=== PATIENT | female | born 1975 | race Caucasian/White ===

== ENCOUNTER → 2017-12-17 09:32 | Outpatient (CLI) | payer OTHER, SELFPAY ==
--- NOTE | 2017-12-17 | DI.US.S_ITS ---
PROCEDURE: US PELVIC COMPLETE INDICATIONS: Severe dysmenorrhea TECHNIQUE: Real-time scanning was performed of the pelvic organs, with image documentation. Additional endovaginal scanning was necessary due to incomplete visualization of the adnexal and endometrial structures by transabdominal scanning. COMPARISON: None. FINDINGS: Transabdominal scanning: Limited scanning through the kidneys shows no hydronephrosis. The kidneys measure 11.9 cm in length each. No pathologic free abdominal or pelvic fluid. Endovaginal scanning: Uterus: Uterus is normal in size at 5.7 x 6.9 x 7.2 cm. The endometrium measures 11 mm in combined thickness. There is a mid anterior intramural fibroid that measures 2.2 x 2.7 x 3.6 cm. Ovaries: The right ovary is enlarged measuring 42 x 46 x 47 mm secondary to a hemorrhagic cyst that measures 34 x 41 x 42 mm. The left ovary is normal measuring 14 x 17 x 28 mm. IMPRESSION: 1. Intrauterine fibroid measuring 3.6 cm in maximum diameter. 2. Hemorrhagic cyst in the right ovary measuring 4.2 cm in maximum diameter. Follow up exam in 6 weeks could be considered. Dictated by: Damion Chamberlain M.D. on 12/17/2017 at 11:35 Approved by: Damion Chamberlain M.D. on 12/17/2017 at 11:39
== END ==
PROVIDERS: Family Provider Family Medicine; PCP Family Medicine; Visit Provider Nurse Practitioner Family
DX: D25.9 Leiomyoma of uterus, unspecified (principal); N83.201 Unspecified ovarian cyst, right side
CPT/HCPCS: 76830; 76856

== ENCOUNTER → 2018-01-27 09:32 | Outpatient (CLI) | payer OTHER, SELFPAY ==
--- NOTE | 2018-01-27 09:35 | DI.US.S_ITS ---
PROCEDURE: US PELVIC COMPLETE INDICATIONS: right ovary pain TECHNIQUE: Real-time scanning was performed of the pelvic organs, with image documentation. Additional endovaginal scanning was necessary due to incomplete visualization of the adnexal and endometrial structures by transabdominal scanning. COMPARISON: [facility], , US PELVIC COMPLETE, 12/17/2017, 9:41. FINDINGS: Transabdominal scanning: Limited scanning through the kidneys shows no hydronephrosis. No pathologic free abdominal or pelvic fluid. Endovaginal scanning: Uterus: Uterus is unchanged in appearance with reference to prior study from 12/17/17, containing a single identified intramural fibroid, measuring up to 3.2 cm in maximal dimension currently. The endometrium measures 9 mm in combined thickness. Ovaries: Left ovary again appears normal, right ovary demonstrates evolution of a moderately large previously hemorrhagic ovarian cyst with almost complete liquefaction of the complex internal material previously present. The structure now measures 3.6 x 3.7 x 4.4 cm, slightly smaller than the prior examination recently performed 12/17/17 when the internal content was complex. IMPRESSION: Stable appearance of the uterus with normal endometrial lining thickness in a single identified moderate-sized fibroid. Expected evolution of the hemorrhagic right ovarian cyst with almost complete resolution of the internal complex material within subsequent to the 12/17/17 recent pelvic ultrasound. The internal content now is simple liquid, and the overall cyst size has mildly reduced from the prior ultrasound. Several small septations remain within. Dictated by: Steven Pruett M.D. on 01/27/2018 at 10:31 Approved by: Steven Pruett M.D. on 01/27/2018 at 10:38
== END ==
PROVIDERS: Family Provider Family Medicine; PCP Family Medicine; Visit Provider Specialist
DX: D25.1 Intramural leiomyoma of uterus (principal); N83.201 Unspecified ovarian cyst, right side
CPT/HCPCS: 76830; 76856

== ENCOUNTER 2019-10-12 08:52 | Observation (INO) | payer OTHER, SELFPAY ==
[2019-10-12] VITALS (19 sets, daily range): BP systolic 110–157; BP diastolic 63–96; PULSE 76–112; RESP 11–20; TEMP 36.5–38.8; O2SAT 90–100; BMI 27.4
--- NOTE | 2019-10-12 | PATH_ITS ---
[facility] Accession Number: [id number] . 01 Material submitted: . appendix - APPENDIX . 01 Clinical history: . ACUTE ABDOMINAL PAIN MOSTLY ON RIGHT SIDE . 02 Diagnosis: Appendix, Appendectomy: Acute suppurative appendicitis with serositis. Negative for dysplasia and malignancy. MRV 10/15/2019 0917 Local . 02 Electronically signed: . Brooke Tate MD, Pathologist NPI- [id number] . 01 Gross description: . Received in formalin, labeled appendix, is an intact appendix (length-4.5 cm, diameter-1.4 cm) with paniagua-white, smooth, shiny, focally exudate-covered serosa with attached mesoappendix (up to 1.4 cm in depth). The lumen contains paniagua, solid, soft material. The wall is up to 0.3 cm in depth. No nodules, masses or lesion are identified. The resection margin is inked blue. Section code: (A1) resection margin en face and one dealer compliance representative serial section; (A2) one-half of the bivalved tip. ([id number]) /MRV 10/14/2019 1511 Local . 02 Pathologist provided ICD-10: K35.80 . 02 CPT . 042918 Performed at: 01 [facility] [address], [place], [place] [id number] MD Arnaud Hilliard MD Phone: [phone] Performed at: 02 [facility] [address] [place], [place] [id number] MD Brooek Tate MD Phone: [phone]
--- NOTE | 2019-10-12 09:01 | ED.GENADULT ---
HPI - General Adult General Chief complaint: Abdominal Pain Stated complaint: acute abdominal pain mostly on right side Time Seen by Provider: 10/12/19 09:01 History of Present Illness HPI narrative: 44-year-old woman with a known right ruptured ovarian cyst last week. Xenia that she had been improving from this and over the last 24-48 hours she has had significantly increasing right sided ( lower quadrant flank and right upper quadrant ) pain to the point that it is not controlled with Vicodin, she is having trouble walking and she is vomiting due to the severity. She had an episode last night where there was some emesis on the floor she slipped and she is also strained her right knee. She does not note that she is symptomaticly orthostatic at this time. She denies any vaginal discharge or bleeding From geospatial information technologist visit on October 07,: Patient on transvaginal ultrasound has a normal uterus measuring 7.76 x 5.70 x 4.29 cm with an endometrial thickness of 5.9 mm. No obvious uterine abnormalities. Patient has bilateral small ovarian cysts and free fluid in the abdomen. The right ovary measures 2.01 x 1.37 x 1.15 cm. Left ovary measures 1.81 x 1.51 x 1.45 cm. Reassured patient there is no large cyst and that her pain was likely from a at ruptured cyst causing internal bleeding. Her pain should continue to improve. Related Data Home Medications Medication Instructions Recorded Confirmed fluoxetine 20 mg capsule 20 mg PO DAILY 12/25/17 10/12/19 lorazepam 0.5 mg tablet 0.5 mg PO BEDTIME 12/25/17 10/12/19 Compounded estrogen/progesterone PO 10/08/19 10/08/19 Allergies Allergy/AdvReac Type Severity Reaction Status Date / Time codeine [CODEINE] Allergy Unknown Verified 10/12/19 09:02 chlorpheniramine AdvReac Intermediate INCREASED Verified 10/12/19 09:17 [From Tussionex] COUGHING/JITTERS hydrocodone [From Tussionex] AdvReac Intermediate INCREASED Verified 10/12/19 09:17 COUGHING/JITTERS Review of Systems Review of Systems Narrative: Denies ? fever ? cough ? cold ? chills ? chest pain ? dyspnea ? orthopnea ? wheezing ? change to bowel or bladder habits (normal BM this morning that did not influence her pain in any way) ? skin changes ? rashes Patient History Medical History (Updated 10/12/19 @ 13:49 by Camelia Hughes MD) Abnormal Pap smear of cervix (Chronic) Hemorrhage of corpus luteum cyst of left ovary (Acute) Human papillomavirus (Chronic) PMDD (premenstrual dysphoric disorder) (Chronic) Recurrent cold sores (Acute) Surgical History History of rectocele (Resolved) Status post loop electrosurgical excision procedure (LEEP) of cervix Social History household members: spouse and children Smoking Status: Never smoker Smoking Status: Never smoker Exam Narrative Exam Narrative: General: Healthy appearing, in no acute distress. Able to give a complete and coherent history. Well-nourished well-developed HEENT: Moist mucous membranes, normal sclera with reactive pupils, Neck: No JVD, supple Respiratory: Lungs are clear to auscultation, no wheezing no rales no rhonchi. Full and symmetrical air movement Cardiac: Regular rate and rhythm no murmurs no bruits Abdomen: Soft, hypoactive bowel tones, tender along the entire right side, pericolic gutter and into the right pelvis without rebound or guarding Skin: Warm and dry, no rashes, well perfused Neurologic: Grossly neurologically intact with no obvious asymmetries or abnormalities Extremities: No trauma, well perfused Psych: Cooperative, appropriate insight and affect Initial Vital Signs Initial Vital Signs: Vital Signs Temperature 97.7 F 10/12/19 08:55 Pulse Rate 112 H 10/12/19 08:55 Respiratory Rate 20 10/12/19 08:55 Blood Pressure 138/83 10/12/19 08:55 Pulse Oximetry 100 10/12/19 08:55 Course Orders Ordered: ED Orders 10/12/19 09:30 Complete Blood Count AUTO DIFF Stat Comprehensive Metabolic Panel Stat Lipase Stat Type and Screen Stat 10/12/19 09:35 CT abdomen pelvis w con Stat 10/12/19 09:43 Test Urine Stat Urine Culture Stat Urine Microscopic Stat Hydromorphone HCl (Dilaudid) 0.5 mg IV Q15MIN PRN PRN Reason: Pain, Severe (7-10) Lactated Ringer's (Lactated Ringers) 1,000 mls @ 150 mls/hr IV CONT SOY Last Admin: 10/12/19 13:27 Dose: 150 mls/hr Documented by: YARIEL Discontinued Medications Sodium Chloride (Normal Saline 0.9%) 1,000 mls @ 1,000 mls/hr IV BOLUS ONE Stop: 10/12/19 10:13 Last Infusion: 10/12/19 11:00 Dose: 0 mls/hr Documented by: Admin: 10/12/19 10:03 Dose: 1,000 mls/hr Documented by: SABA Cefotetan Disodium/Dextrose (Cefotan) 2 gm in 50 mls @ 100 mls/hr IV NOW ONE Stop: 10/12/19 11:42 Last Infusion: 10/12/19 12:06 Dose: 0 mls/hr Documented by: Admin: 10/12/19 11:29 Dose: 100 mls/hr Documented by: SABA Metronidazole (Flagyl) 500 mg in 100 mls @ 100 mls/hr IV NOW ONE Stop: 10/12/19 12:12 Last Infusion: 10/12/19 12:35 Dose: 100 mls/hr Documented by: Admin: 10/12/19 12:07 Dose: 100 mls/hr Documented by: SABA Cefotetan Disodium/Dextrose (Cefotan) 2 gm in 50 mls @ 100 mls/hr IV INTRA-OP ONE Stop: 10/12/19 12:39 Ketorolac Tromethamine (Toradol) 15 mg IV NOW ONE Stop: 10/12/19 09:15 Last Admin: 10/12/19 09:56 Dose: 15 mg Documented by: SABA Ondansetron HCl (Zofran) 4 mg IV NOW ONE Stop: 10/12/19 09:15 Last Admin: 10/12/19 10:00 Dose: 4 mg Documented by: SABA Vital Signs Vital signs: Vital Signs - 8 hr 10/12/19 08:55 10/12/19 09:56 10/12/19 10:16 Temperature 97.7 F 98.9 F 98.9 F Pulse Rate 112 H 78 Respiratory Rate 20 18 Blood Pressure 138/83 Blood Pressure [Right Arm] 132/81 Pulse Oximetry 100 98 10/12/19 11:30 Temperature Pulse Rate 84 Respiratory Rate 12 Blood Pressure Blood Pressure [Right Arm] 130/80 Pulse Oximetry 99 Medical Decision Making Medical Records Medical records reviewed: Yes I reviewed the patient's medical records. Lab Data Lab results reviewed: Yes I reviewed the patient's lab results. Result diagrams: 10/12/19 09:30 10/12/19 09:30 Labs: Lab Results 10/12/19 10/12/19 10/12/19 Range/Units 09:30 09:30 09:30 WBC 21.0 H (4.5-11.0) X10^3/uL RBC 4.11 (4.0-5.2) X10^6/uL Hgb 13.4 (12.0-16.0) g/dL Hct 39.6 (36-46) % MCV 96.4 (80-100) fL MCH 32.7 (26-34) PG MCHC 33.9 (30-36) % RDW 12.1 (11.6-14.8) % Plt Count 251 (150-400) X10^3/uL Neut % (Auto) 95.1 H (50-75) % Lymph % (Auto) 1.8 L (25-40) % [place]berry % (Auto) 2.9 L (3-14) % Eos % (Auto) 0.0 L (2-4) % Baso % (Auto) 0.2 (0-2) % Neut # (Auto) 10836 H (7600-9208) /uL Lymph # (Auto) 400 L (3554-4456) /uL [place] # (Auto) 600 (0-900) /uL Eos # (Auto) 0 (0-450) /uL Baso # (Auto) 0 (0-100) /uL Sodium 137 (137-145) mmol/L Potassium 4.2 (3.4-5.1) mmol/L Chloride 100 (98-107) mmol/L Carbon Dioxide 28 (22-32) mmol/L BUN 11 (7-17) mg/dL Creatinine 0.66 (0.52-1.04) mg/dL Estimated GFR > 60.0 (>60) mL/min BUN/Creatinine Ratio 16.7 (6-22) Glucose 145 H (70-100) mg/dL Calcium 9.6 (8.4-10.2) mg/dL Total Bilirubin 0.5 (0.2-1.3) mg/dL AST 35 (14-36) IU/L ALT 25 (<35) IU/L Alkaline Phosphatase 83 (38-126) U/L Total Protein 8.3 H (6.3-8.2) g/dL Albumin 4.7 (3.5-5.0) g/dL Globulin 3.6 (1.7-4.1) g/dL Albumin/Globulin Ratio 1.3 (1.0-2.8) Lipase 59 (23-300) U/L Urine RBC Urine WBC (0-5/HPF) Ur Squamous Epith Cells (0-5/HPF) Urine Bacteria (None) Urine Mucus (Negative) Ur Culture Indicated? Urine Test (Negative) Blood Type O Negative Antibody Screen Negative 10/12/19 10/12/19 Range/Units 09:43 09:43 WBC (4.5-11.0) X10^3/uL RBC (4.0-5.2) X10^6/uL Hgb (12.0-16.0) g/dL Hct (36-46) % MCV (80-100) fL MCH (26-34) PG MCHC (30-36) % RDW (11.6-14.8) % Plt Count (150-400) X10^3/uL Neut % (Auto) (50-75) % Lymph % (Auto) (25-40) % [place]berry % (Auto) (3-14) % Eos % (Auto) (2-4) % Baso % (Auto) (0-2) % Neut # (Auto) (0533-2720) /uL Lymph # (Auto) (4478-7053) /uL Newberry # (Auto) (0-900) /uL Eos # (Auto) (0-450) /uL Baso # (Auto) (0-100) /uL Sodium (137-145) mmol/L Potassium (3.4-5.1) mmol/L Chloride (98-107) mmol/L Carbon Dioxide (22-32) mmol/L BUN (7-17) mg/dL Creatinine (0.52-1.04) mg/dL Estimated GFR (>60) mL/min BUN/Creatinine Ratio (6-22) Glucose (70-100) mg/dL Calcium (8.4-10.2) mg/dL Total Bilirubin (0.2-1.3) mg/dL AST (14-36) IU/L ALT (<35) IU/L Alkaline Phosphatase (38-126) U/L Total Protein (6.3-8.2) g/dL Albumin (3.5-5.0) g/dL Globulin (1.7-4.1) g/dL Albumin/Globulin Ratio (1.0-2.8) Lipase (23-300) U/L Urine RBC Not Reportable Urine WBC 1-5/hpf (0-5/HPF) Ur Squamous Epith Cells 1-5 /hpf (0-5/HPF) Urine Bacteria Moderate (10-30) H (None) Urine Mucus 1+ H (Negative) Ur Culture Indicated? Specimen cultured Urine Test Negative (Negative) Blood Type Antibody Screen Urine Dip Bedside Urine Glucose Negative Bedside Urine Bilirubin + 1 Bedside Urine Ketone +/- 5 Urine Specific [place] 1.015 Bedside Urine Occult Blood - Negative Bedside Urine pH 8.0 Bedside Urine Protein + 30 Bedside Urine Urobilinogen +/- 1mg Bedside Urine Nitrite - Negative Bedside Urine Leukocytes +/- 15 Esterase Point of care testing: Urine Dip Bedside Urine Glucose Negative Bedside Urine Bilirubin + 1 Bedside Urine Ketone +/- 5 Urine Specific [place] 1.015 Bedside Urine Occult Blood - Negative Bedside Urine pH 8.0 Bedside Urine Protein + 30 Bedside Urine Urobilinogen +/- 1mg Bedside Urine Nitrite - Negative Bedside Urine Leukocytes +/- [address] scan - abdomen/pelvis: Radiologist's Impression: IMPRESSION: Abnormal appendix, with high suspicion for acute appendicitis. No findings of perforation or abscess can be seen. Surgical consultation is recommended. There is a small amount of free pelvic fluid seen, which is considered to be within physiologic limits. There is a focal fluid collection seen within the left upper quadrant, which is nonspecific. Differential diagnosis includes a peritoneal inclusion cyst. Although this is not seen immediately adjacent to the pancreas, differential diagnosis includes a pancreatic pseudocyst. Please correlate with known patient history and any prior relevant outside imaging. Incidental note is made of: Small hiatal hernia Fatty liver infiltration Diverticulosis is seen, without findings of active diverticulitis. Levoconvex scoliotic curvature Bilateral L5 pars defects, with grade 1 L5-S1 anterolisthesis and focal degenerative change Note: Case discussed by telephone with Dr. Hughes at 10 AM [place] time on October 12, 2019. Dictated by: Flex Lee M.D. on 10/12/2019 at 9:53 MDM Narrative Medical decision making narrative: Acute appendicitis as suggested by CT scan, clinical presentation and leukocytosis. Up-to-date recommendations are a second-generation cephalosporin along with metronidazole will begin nose while am waiting to hear back from surgery. Last oral intake was 8:00 a.m. and half a banana [address] Gamez. Will come in further evaluate patient in the emergency department Discharge Plan Departure Patient Disposition: Admitted as Observation Clinical Impression: Acute appendicitis Qualifiers: Acute appendicitis type: unspecified acute appendicitis type Qualified Code(s): K35.80 - Unspecified acute appendicitis Referrals: Genny Gongora MD [Physician] - Admit Date/Time: 10/12/19 12:04 Admit Provider: Jose Palacios
[2019-10-12 09:34] LABS: Add Manual Diff / Slide Review NO; Basophils Absolute Auto 0 /uL (0-100); Basophils Percent Auto 0.2 % (0-2); Eosinophils Absolute Auto 0 /uL (0-450); Hematocrit 39.6 % (36-46); Hemoglobin 13.4 g/dL (12.0-16.0); Lymphocytes Absolute Auto 400 /uL (1100-4500); Lymphocytes Percent Auto 1.8 % (25-40); Mean Corpuscular HGB Conc 33.9 % (30-36); Mean Corpuscular Hemoglobin 32.7 PG (26-34); Mean Corpuscular Volume 96.4 fL (80-100); Monocytes Absolute Auto 600 /uL (0-900); Monocytes Percent Auto 2.9 % (3-14); Neutrophils Absolute Auto 19900 /uL (1500-7000); Neutrophils Percent Auto 95.1 % (50-75); Platelet Count 251 X10^3/uL (150-400); Red Blood Cell Count 4.11 X10^6/uL (4.0-5.2); Red Cell Distribution Width 12.1 % (11.6-14.8)
--- NOTE | 2019-10-12 09:35 | DI.CT.S_ITS ---
PROCEDURE: CT ABDOMEN PELVIS W CON INDICATIONS: Increasing pain, pelvic ultrasound +free fluid 4 days ago TECHNIQUE: After the administration of intravenous contrast, 5 mm thick sections acquired from the diaphragm to the symphysis. 5 mm coronal and sagittal reformats were acquired. For radiation dose reduction, the following was used: automated exposure control, adjustment of mA and/or kV according to patient size. COMPARISON: [facility], US, US PELVIC COMPLETE, 12/11/2018, 10:43. [facility], US, US PELVIC COMPLETE, 10/08/2019, 10:53. FINDINGS: Image quality: Excellent. ABDOMEN: Lung bases: Lung bases are clear. Heart size is normal. A small hiatal hernia is incidentally noted. Solid organs: Liver is normal in size and enhancement. Diffuse fatty liver infiltration is noted. Gallbladder wall does not appear thickened. Biliary system is non dilated. Pancreas enhances normally. Spleen is normal in size and enhancement. No adrenal nodules. Kidneys demonstrate normal size and enhancement, without hydronephrosis. Peritoneum and bowel: The appendix is abnormal, with a hyperemic wall and the caliber of 1.5 cm. Moderate surrounding inflammatory change can be seen. No free air is seen to suggest perforation. No focal fluid collection can be seen to suggest abscess. Bowel loops demonstrate normal wall thickness and caliber. There is a focal simple appearing fluid collection seen between the left kidney and the spleen that measures 3.9 by 2.2 x 2.6 cm. this fluid collection is immediately adjacent to the left adrenal gland, yet it does not appear to arise from the adrenal gland itself. No significant rim enhancement and can be seen. No free fluid or air. A mild degree of fatty stranding tiny seen within the superior mesentery, as on series 2 image 39. Nodes and vessels: No retroperitoneal or mesenteric adenopathy by size criteria. Aorta and inferior vena cava are normal in size. Diverticulosis is seen, without findings of active diverticulitis. Miscellaneous: A mild periumbilical hernia is seen, containing fat. PELVIS: Genitourinary: Bladder wall thickness is normal. A small amount of free pelvic fluid is seen, which is considered to be within physiologic limits. No adnexal masses are seen. Miscellaneous: No inguinal hernias or adenopathy. Bones: No suspicious bony lesions. No vertebral body compression fractures. Mild levoconvex scoliotic curvature is noted. Grade 1 L5-S1 anterolisthesis is seen, with associated pars defects and associated degenerative change. IMPRESSION: Abnormal appendix, with high suspicion for acute appendicitis. No findings of perforation or abscess can be seen. Surgical consultation is recommended. There is a small amount of free pelvic fluid seen, which is considered to be within physiologic limits. There is a focal fluid collection seen within the left upper quadrant, which is nonspecific. Differential diagnosis includes a peritoneal inclusion cyst. Although this is not seen immediately adjacent to the pancreas, differential diagnosis includes a pancreatic pseudocyst. Please correlate with known patient history and any prior relevant outside imaging. Incidental note is made of: Small hiatal hernia Fatty liver infiltration Diverticulosis is seen, without findings of active diverticulitis. Levoconvex scoliotic curvature Bilateral L5 pars defects, with grade 1 L5-S1 anterolisthesis and focal degenerative change Note: Case discussed by telephone with Dr. Hughes at 10 AM [place] time on October 12, 2019. Dictated by: Flex Lee M.D. on 10/12/2019 at 9:53 Approved by: Flex Lee M.D. on 10/12/2019 at 10:02
[2019-10-12 09:45] LABS: Alanine Aminotransferase 25 IU/L (<35); Albumin 4.7 g/dL (3.5-5.0); Albumin Globulin Ratio 1.3 (1.0-2.8); Alkaline Phosphatase 83 U/L (38-126); Aspartate Aminotransferase 35 IU/L (14-36); BUN Creatinine Ratio 16.7 (6-22); Bilirubin Total 0.5 mg/dL (0.2-1.3); Blood Urea Nitrogen 11 mg/dL (7-17); Calcium 9.6 mg/dL (8.4-10.2); Carbon Dioxide 28 mmol/L (22-32); Chloride 100 mmol/L (98-107); Estimated Glomerular Filt Rate > 60.0 mL/min (>60); Globulin 3.6 g/dL (1.7-4.1); Glucose 145 mg/dL (70-100); HEMOLYSIS < 15 (0-50); Lipase 59 U/L (23-300); Potassium 4.2 mmol/L (3.4-5.1); Sodium 137 mmol/L (137-145); Total Protein 8.3 g/dL (6.3-8.2)
[2019-10-12] MEDS: KETOROLAC 60 MG/2 ML VIAL 15 MG IV (09:56)
[2019-10-12 09:57] LABS: Bacteria Urine Moderate (10-30); Culture Indicated Urine Specimen Cultured; Mucus Urine 1+ (Negative); Squamous Epithelial Cell Urine 1-5 /HPF (0-5/HPF); WBC Urine 1-5/HPF (0-5/HPF)
[2019-10-12] MEDS: ONDANSETRON 4 MG/2 ML INJ IV (10:00)
[2019-10-12] MEDS: SODIUM CHLORIDE 0.9% 1,000 ML 1000 ML IV (10:03)
[2019-10-12 10:23] LABS: Pregnancy Test Urine Negative (Negative)
[2019-10-12] MEDS: CEFOTETAN 2 GM/50 ML PIGGYBACK IV ×2 (11:29→18:10)
[2019-10-12] MEDS: metroNIDAZOLE 500 MG/100 ML PIGGYBACK 100 MG IV ×2 (12:07→18:16)
--- NOTE | 2019-10-12 12:27 | PM.HP.1 ---
History of Present Illness History of Present Illness Date Patient Seen: 10/12/19 Time Patient Seen: 12:01 Chief complaint: acute abdominal pain mostly on right side Narrative: Patient is a woman who is felt ill for the last 2 weeks. She had a known ovarian cyst that was followed. 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 She had been taking ibuprofen for the pain. That pain did not subside but became increased over the last few days. She presented the emergency room and a CT was done. She has had nausea without vomiting. No diarrhea. No blood in her stool. She has never had a colonoscopy and is 44 years of age. The pain that she has had is located mostly along the right side flank area. It is a persistent pain with increase with movement/walking. Patient History Medical History (Updated 10/12/19 @ 12:29 by Jose Palacios MD) Abnormal Pap smear of cervix (Chronic) Hemorrhage of corpus luteum cyst of left ovary (Acute) Human papillomavirus (Chronic) PMDD (premenstrual dysphoric disorder) (Chronic) Recurrent cold sores (Acute) Surgical History History of rectocele (Resolved) Status post loop electrosurgical excision procedure (LEEP) of cervix Family & Social History Safety & Behavioral: Feels Safe in Current Yes Environment Been Physically Hurt or No Threatened By a Person Tobacco & Substance use: Smoking Status Never smoker alcohol intake frequency 0-2 drinks per day Substance Use Type marijuana Meds Home Medications and Allergies Home Medications Medication Instructions Recorded Confirmed Type fluoxetine 20 mg capsule 20 mg PO DAILY 12/25/17 12/11/18 History lorazepam 0.5 mg tablet 0.5 mg PO BEDTIME 12/25/17 12/11/18 History Compounded estrogen/progesterone PO 10/08/19 10/08/19 History Allergies Allergy/AdvReac Type Severity Reaction Status Date / Time codeine [CODEINE] Allergy Unknown Verified 10/12/19 09:02 chlorpheniramine AdvReac Intermediate INCREASED Verified 10/12/19 09:17 [From Tussionex] COUGHING/JITTERS hydrocodone [From Tussionex] AdvReac Intermediate INCREASED Verified 10/12/19 09:17 COUGHING/JITTERS Review of Systems Review of Systems Narrative: Patient denies any visual difficulties double vision pain arise earaches or sore throats. No tooth aches or trouble swallowing. No cough cold or asthma. No chest pain heart problems or murmurs. No black or bloody bowel movements. No seizures or blackouts. No problems with blood in her urine history kidney stones or urinary difficulties. No problems with her thyroid pancreas she is aware of. No unusual bruising or bleeding. Exam Vital Signs (past 8 hours): - 10/12/19 08:55 10/12/19 09:56 10/12/19 10:16 Temperature 97.7 F 98.9 F 98.9 F Pulse Rate 112 H 78 Respiratory Rate 20 18 Blood Pressure 138/83 Blood Pressure [Right Arm] 132/81 Pulse Oximetry 100 98 10/12/19 11:30 10/12/19 12:21 Temperature Pulse Rate 84 76 Respiratory Rate 12 18 Blood Pressure Blood Pressure [Right Arm] 130/80 145/85 H Pulse Oximetry 99 99 Oxygen Delivery Method Room Air Narrative Exam Narrative: Cooperative no apparent distress. Her eyes are nonicteric. Pupils equal small round reactive to light. Conjunctivae are pink. Ears without lesion except piercing. Nasal septum midline. Oral mucosa is pink moist no open lesions appreciated. There are no nodes in the neck or supraclavicular areas. No masses or tenderness in the neck. Lungs are clear to auscultation without rales or rhonchi. Heart regular rate and rhythm without murmur gallop. Lungs percuss equally bilaterally. No bruit in the neck. Abdomen is mildly protuberant soft. There is localized tenderness in the right mid abdomen/lower abdomen. Patient is alert and oriented x3. Speech rate and content are appropriate affect is appropriate. No deformity of her 4 extremities. She has palpable dorsalis pedis pulses 2+. No joint swelling appreciated in her extremities. Objective Labs Result Diagrams: 10/12/19 09:30 10/12/19 09:30 Labs: Laboratory Results - last 24 hr 10/12/19 10/12/19 10/12/19 09:30 09:30 09:30 WBC 21.0 H RBC 4.11 Hgb 13.4 Hct 39.6 MCV 96.4 MCH 32.7 MCHC 33.9 RDW 12.1 Plt Count 251 Neut % (Auto) 95.1 H Lymph % (Auto) 1.8 L [place] % (Auto) 2.9 L Eos % (Auto) 0.0 L Baso % (Auto) 0.2 Neut # (Auto) 21632 H Lymph # (Auto) 400 L Marshall # (Auto) 600 Eos # (Auto) 0 Baso # (Auto) 0 Sodium 137 Potassium 4.2 Chloride 100 Carbon Dioxide 28 BUN 11 Creatinine 0.66 Estimated GFR > 60.0 BUN/Creatinine Ratio 16.7 Glucose 145 H Calcium 9.6 Total Bilirubin 0.5 AST 35 ALT 25 Alkaline Phosphatase 83 Total Protein 8.3 H Albumin 4.7 Globulin 3.6 Albumin/Globulin Ratio 1.3 Lipase 59 Urine RBC Urine WBC Ur Squamous Epith Cells Urine Bacteria Urine Mucus Ur Culture Indicated? Urine Test Blood Type O Negative Antibody Screen Negative 10/12/19 10/12/19 09:43 09:43 WBC RBC Hgb Hct MCV MCH MCHC RDW Plt Count Neut % (Auto) Lymph % (Auto) Marshall % (Auto) Eos % (Auto) Baso % (Auto) Neut # (Auto) Lymph # (Auto) Marshall # (Auto) Eos # (Auto) Baso # (Auto) Sodium Potassium Chloride Carbon Dioxide BUN Creatinine Estimated GFR BUN/Creatinine Ratio Glucose Calcium Total Bilirubin AST ALT Alkaline Phosphatase Total Protein Albumin Globulin Albumin/Globulin Ratio Lipase Urine RBC Not Reportable Urine WBC 1-5/hpf Ur Squamous Epith Cells 1-5 /hpf Urine Bacteria Moderate (10-30) H Urine Mucus 1+ H Ur Culture Indicated? Specimen cultured Urine Test Negative Blood Type Antibody Screen Assessment & Plan Assessment & Plan narrative: Patient with a marked elevation of her white count a left shift with tenderness in the right lower quadrant that was localized and CT suggestive of appendicitis. Based on physical exam in do not believe it is perforated but is possible is perforated isolated by omentum run other structure. In any event I would recommend a laparoscopy and appendectomy. Risks of bleeding infection hernia abscess formation injury to internal organs all discussed with her. She appears to understand wishes to proceed. I discussed her postoperative restrictions as well.
[2019-10-12] MEDS: LACTATED RINGERS 1,000 ML 150 ML IV (13:27)
[2019-10-12] MEDS: HYDROMORPHONE 1 MG INJ 0.5 MG IV (16:04)
--- NOTE | 2019-10-12 16:49 | PM.PREOP ---
Pre-operative Note Interval Note History & Physical reviewed/Exam performed by Physician: Yes Changes to H&P: No
[2019-10-12] MEDS: LACTATED RINGERS 1,000 ML 42 ML IV (17:42)
--- NOTE | 2019-10-12 17:48 | PC.NURSE ---
Addendum entered by Denise Manning R.N. 10/12/19 22:12: Returned from PACU @ 2019 ALert/awake, denies discomfort. 3 bndaid dsg CDI across abdomen. IVF LR @ 100cc/hr infusing via pump into the LAC w/o incidence. Stable post op course. Call light w/in reach, bed alarm on for pt safety. Continue w/plan of care. Original Note: Pt Med approximately 1600 for discomfort w/good relief. IV of LR @ 150 cc/hr infuisng into the LAC via pump w/o incidence. Awaiting to go to surgery. OR staff here at 1725 to traansport to surgery.
--- NOTE | 2019-10-12 18:35 | SUR.OPER ---
Supine on padded OR bed, head on pillow, left arm padded and tucked at side, legs uncrossed, safety belt at thigh, tape over blanket over lower legs .
[2019-10-12] MEDS: BUPIVACAINE 0.5% (PF) VIAL 30 ML INJ (18:54)
--- NOTE | 2019-10-12 19:53 | SUR.PHASEI ---
Patient tolerating po. Denies pain and nausea. Argenis CYR. Patient emotional, crying, thanking everyone in the healthcare.
--- NOTE | 2019-10-12 19:53 | PM.OP.1 ---
Operative Date/Time/Diagnoses Date of procedure: 10/12/19 Time of procedure: 19:39 Pre-op diagnosis: Acute appendicitis Post-op diagnosis: same Procedure & Clinicians Procedure: Laparoscopic appendectomy Same procedure as scheduled: Yes Indications: Right abdominal pain with an abnormal CT scan and elevated white blood cell count Surgeon: Jose Palacios Click Yes if Unassisted: Yes Anesthesia Type: General Operative Notes Findings: Acute appendicitis. No evidence perforation. There was blood in the peritoneal cavity and pelvis. This may be related to a reported ruptured ovarian cyst. This was irrigated and suctioned out. There was no ongoing bleeding. Closure Type: primary Specimen(s): other (Appendix) Estimated Blood Loss (mL): 5 Blood products transfused: none Procedure in detail: The patient was placed supine on the operating room table and underwent general endotracheal anesthesia. She was prepped and draped in the usual fashion. Local anesthetic was infiltrated beneath the umbilicus and a small incision made in the lip of the umbilicus. It was carried down under direct vision into the peritoneal cavity. Stay sutures of 0 Vicryl were placed in the fascia. A 12 mm port was inserted and the abdomen is insufflated. Two additional ports were placed 1 above the pubis and 1 in the left lower quadrant. Appendix was identified as a retrocecal structure. I divided it is encasing structures and delivered it or I could work on it. All of the mesentery was divided using a thunder beat Harmonic scalpel. The base was cleared in a 0 0 PDS loop was placed at the based. The appendix was clamped distal to the tie and the appendix was divided between the tie and the clamp. The it was immediately placed into a bag. It was removed without difficulty or spillage. The appendiceal stump and tie were intact and in good position. The cecum was actually not far from the tip of the liver. I irrigated the right gutter down into the pelvis the pelvis was irrigated. There was blood within it that I think was old and probably related to whatever process was going on with the ovaries a week or 2 ago. There was no ongoing bleeding. The ports were all removed. Stay sutures at the umbilicus were tied. The wounds were irrigated and 4 0 Vicryl subcuticular stitches and Steri-Strips were used to close the skin. The patient was awakened extubated taken the recovery area in good condition. There no apparent complications. Complications: none Post-operative Condition: stable Disposition: PACU
[2019-10-12 21:05] LABS: Add Manual Diff / Slide Review NO; Basophils Absolute Auto 0 /uL (0-100); Basophils Percent Auto 0.2 % (0-2); Eosinophils Absolute Auto 0 /uL (0-450); Hematocrit 36.2 % (36-46); Hemoglobin 12.1 g/dL (12.0-16.0); Lymphocytes Absolute Auto 300 /uL (1100-4500); Lymphocytes Percent Auto 2.3 % (25-40); Mean Corpuscular HGB Conc 33.4 % (30-36); Mean Corpuscular Hemoglobin 32.5 PG (26-34); Mean Corpuscular Volume 97.2 fL (80-100); Monocytes Absolute Auto 300 /uL (0-900); Monocytes Percent Auto 2.2 % (3-14); Neutrophils Absolute Auto 13600 /uL (1500-7000); Neutrophils Percent Auto 95.3 % (50-75); Platelet Count 191 X10^3/uL (150-400); Red Blood Cell Count 3.73 X10^6/uL (4.0-5.2); Red Cell Distribution Width 12.2 % (11.6-14.8); White Blood Cell Count 14.3 X10^3/uL (4.5-11.0)
[2019-10-12] MEDS: GABAPENTIN 300 MG CAPSULE PO (21:30)
[2019-10-12] MEDS: LACTATED RINGERS 1,000 ML 100 ML IV (21:30)
--- NOTE | 2019-10-12 23:41 | PC.NURSE ---
Addendum entered by Skye Vasques R.N. 10/13/19 05:02: Complains of generalized discomfort including a headache; medicated with Toradol. Original Note: Patient is alert and oriented. Breath sounds CTA with RA sat of 97%. HRR. Denies nausea. BT hypoactive; denies flatus. Abdomen is soft but mildly tender around umbilicus. Bandaid dressings to abdomen are CDI. Moving self in bed. Up to bathroom with SBA; voiding without dysuria, frequency or urgency. Reports fall last night prior to hospitalization and thinks she hyperextended her knee so is feeling some weakness in right LE. Wearing bilateral calf SCD's. Denies pain at this time. Fall risk score is high and bed alarm is activated.
[2019-10-13 03:40] VITALS: BP 107/61; PULSE 78; RESP 16; TEMP 36.9; O2SAT 98
[2019-10-13] MEDS: KETOROLAC 30 MG/ML VIAL IV (04:56)
[2019-10-13 08:00] VITALS: BP 124/81; PULSE 70; RESP 17; TEMP 36.9; O2SAT 97
[2019-10-13] MEDS: ENOXAPARIN 40 MG/0.4 ML SYRINGE SUBCUT (08:22)
[2019-10-13] MEDS: GABAPENTIN 300 MG CAPSULE PO (08:22)
--- NOTE | 2019-10-13 10:49 | PC.NURSE ---
Assess- Patient is A&Ox3. She denies pain or discomfort. 3 large bandaides to lower abdomen all cdi. Pt calls for needs, BT+x4, she has been discharged and will be catching the 3:00 ferry to [place].
--- NOTE | 2019-10-13 11:53 | P.DS_ITS ---
History of Present Illness History of Present Illness Chief complaint: acute abdominal pain mostly on right side Narrative: Patient is a woman who is felt ill for the last 2 weeks. She had a known ovarian cyst that was followed. 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 She had been taking ibuprofen for the pain. That pain did not subside but became increased over the last few days. She presented the emergency room and a CT was done. She has had nausea without vomiting. No diarrhea. No blood in her stool. She has never had a colonoscopy and is 44 years of age. The pain that she has had is located mostly along the right side flank area. It is a persistent pain with increase with movement/wa lking. Discharge Providers Provider Date of admission: 10/12/19 12:04 Discharge Date: 10/13/19 Primary care physician: BRUNO Carlos Consults: 10/12/19 20:25 Consult to Discharge Planning Routine Comment: Discharge provider: Jose Palacios MD Summary Hospital Course Discharge Diagnosis: Acute appendicitis Hospital Course: Patient was admitted for observation taken to the operating room the day of admission. She was found to have a retrocecal but acute appendicitis. Her postoperative course was quite smooth. The following morning she was tolerating a general diet and was feeling much better and pain-free in the right lower quadrant. She was discharged to follow up in the office Status at Discharge Cognitive/behavioral status at discharge: oriented Functional status at discharge: independent ambulation Overall status at discharge: patient is progressing back to baseline Exam Vital Signs (past 8 hours): - 10/13/19 08:00 Temperature 98.4 F Pulse Rate 70 Respiratory Rate 17 Blood Pressure 124/81 Pulse Oximetry 97 Oxygen Delivery Method Room Air Oxygen Flow Rate 0 Objective Labs Result Diagrams: 10/12/19 20:45 10/12/19 09:30 Labs: Laboratory Results - last 24 hr 10/12/19 20:45 WBC 14.3 H RBC 3.73 L Hgb 12.1 Hct 36.2 MCV 97.2 MCH 32.5 MCHC 33.4 RDW 12.2 Plt Count 191 Neut % (Auto) 95.3 H Lymph % (Auto) 2.3 L [place] % (Auto) 2.2 L Eos % (Auto) 0.0 L Baso % (Auto) 0.2 Neut # (Auto) 28742 H Lymph # (Auto) 300 L [place] # (Auto) 300 Eos # (Auto) 0 Baso # (Auto) 0 Discharge Plan Discharge Plan Patient Disposition: Home Discharge orders & Medications Prescriptions: New hydrocodone-acetaminophen [Peterman] 5-325 mg tablet 1 tab PO Q4H PRN (Reason: painful procedure) Qty: 10 RF: 0 Continued Compounded estrogen/progesterone constantino PO RF: 0 fluoxetine 20 mg capsule 20 mg PO DAILY RF: 0 lorazepam 0.5 mg tablet 0.5 mg PO BEDTIME RF: 0 Follow up/Referrals: Genny Gongora MD [Physician] - Jose Palacios MD [Physician] - 10/22/19 2:30 pm (If you need to reach a doctor please call our office. If it is after hours listen to the entire message and you will be connected with the page prototype machine operator at the end of the message) Maame Mcarthur ARNP [Primary Care Provider] - Discharge Health Status Multidrug resistant organism: No MDRO Diet/Activity/Treatments Diet: Diet as Tolerated Activity: Do not lift anything over 10 lb or strain for the next 4 weeks. You are allowed to walk. No pool or tub for at least 2 weeks. Skin/Wound/Dressing Care Report to your healthcare provider any signs of infection, such as:: increased pain, unusual drainage and unusual redness Dressing: You may remove the Band-Aids tomorrow and shower. Leave the strips of tape under the Band-Aids fall off on their own. Discharge Data Primary Care Provider: Maame Mcarthur Attending Provider: Jose Palacios Admit Date/Time: 10/12/19 12:04 Quality VTE Deep Vein Thrombosis/Pulmonary Embolism Present on Admission: No
--- NOTE | 2019-10-13 13:22 | CM.DANOTE ---
DCP Assessment: EMR reviewed: patient is a 44 yr old female who was admitted for appendectomy preformed by Dr. Palacios. PCP is Dr Mcarthur. Cm/RN met with patient at the bedside and explained role. Patient was alert and oriented x3 at time of CM/Rn visit. Patient is independent with all ADLs and drives at [place]. patient currently lives with her and kids at home. Patients home is a two story home with 14 stairs and has hand holds to help patient get to the top floor. Patients will be home with patient for the next two weeks to help patient with recovery. I: [employer] Plan: D/C home with Graeme when medically stable. no identified D/C planning needs noted at this time and CM department will follow to assist with any new D/C planning needs that may arise. Jasmin Amos RN Discharge Planning/Care Management CM Discharge Assessment Start: 10/13/19 13:21 Freq: Status: Active Protocol: Document 10/13/19 13:21 HS (Rec: 10/13/19 13:22 [id number]) Discharge Planning Assessment Assigned Agronomy Professor Jasmin Amos RN DPOA/Assigned Designee Name Graeme Gleason () Contact Information [phone] Advance Directives? No History Provided By Patient,Medical Record Has Patient been admitted in last 30 No days? Prior Living Arrangements House Household Members spouse,children Type of transporation used prior to Drives own vehicle admit Independent with ADL's Yes Is patient alert and oriented? Yes Barriers to Discharge No Discharge Plan Home Referrals Initiated None needed Whiteboard Updated in Patient Room with Yes name and ext. # of Agronomy Professor Review Status In Process Next Review Type Continued Stay Review
== END 2019-10-13 14:15 | disposition home or self-care (01) ==
LOC: ED 09:01 → AC 12:05
PROVIDERS: Admitting Provider Specialist; Emergency Provider Emergency Medicine; Family Provider Family Medicine; PCP Nurse Practitioner Family; Referring Provider Emergency Medicine; Visit Provider Specialist
PROC: 0DTJ4ZZ Resection of Appendix, Percutaneous Endoscopic Approach (ICD-10-PCS; CPT 44970; principal; 2019-10-12 16:15)
DX: K35.80 Unspecified acute appendicitis (principal)
CPT/HCPCS: 44970; 36415; 74177; 80053; 81003; 81015; 81025; 83690; 85025; 86850; 86900; 86901; 87086; 96361; 96365; 96367; 96372; 96375; 96376; 99218; 99284; G0378; J1100; J1170; J1650; J1885; J2250; J2405; J2704; J3010; Q9967

== ENCOUNTER → 2020-10-26 14:06 | Outpatient (CLI) | payer OTHER, SELFPAY ==
[2019-10-12 13:28] VITALS: BMI 27.4
--- NOTE | 2020-10-26 | DI.MRI.S_ITS ---
PROCEDURE: MR KNEE RT WO/W CON INDICATIONS: Pain in right knee. Mass TECHNIQUE: Noncontrast sagittal PD fast spin echo and T2 fast spin echo with fat saturation, sagittal 3-D FLASH with fat saturation; coronal T1 spin echo and PD fast spin echo with fat saturation, and axial T1 spin echo and PD fast spin echo with fat saturation through the knee. Post-contrast axial, coronal, and sagittal T1 spin echo with fat saturation through the knee. [facility], MR, MR VISIONAIRE RT KNEE, 04/27/2020, 12:55. [facility] [place] [facility], CR, XR KNEE ARTHRITIC SERIES RT, 02/12/2020, 10:51. FINDINGS: Menisci: Medial meniscal tear, with abnormal signal extending to the undersurface of the body and posterior horn. There is partial extrusion. Lateral meniscus intact. Cruciate ligaments: Anterior cruciate ligament appears thickened, with striated T2 hyperintense appearance. Some intact fibers are present. Posterior cruciate ligament appears intact. Medial structures: The medial collateral ligament appears intact. Semimembranosus tendon appears intact. Visualized portions of the pes anserinus tendons appear normal. No abnormal bursal fluid. Lateral structures: The lateral collateral ligament intact. Biceps femoris tendon appears intact. Popliteus tendon grossly unremarkable. Iliotibial band appears intact. Anterior structures: Quadriceps tendon intact. Medial and lateral patellofemoral ligaments intact. There is mild patellar tendinopathy. Prepatellar and superficial infrapatellar subcutaneous edema/fluid. Bones and cartilage: No focal marrow contusion or discrete low signal fracture line. There is T2 hyperintense lesion again noted within the posterior distal femoral metaphysis, with discrete well-marginated appearance. No adjacent marrow edema. This lesion closely abuts the posterior cortex of the distal femur however no definite cortical breakthrough or soft tissue component. However, there is some endosteal thinning best seen on the sagittal pulse sequences (for example image 14/15.). This raises the possibility of chondrosarcoma. There appears to be peripheral enhancement on post-contrast pulse sequences. Probable early cystic changes versus marrow edema seen at the tibial eminence on image 18/11. Within the medial compartment, no focal cartilage defect. Within the lateral compartment, low-grade surface fraying of the central weight-bearing femoral and tibial cartilage without focal defect. Within the patellofemoral compartment, mild diffuse surface fraying of the patellar cartilage. Joint space: [id number] joint effusion. No Olson's cyst. No specific evidence of intra-articular loose body. IMPRESSION: T2 hyperintense, peripherally enhancing lesion involving the distal femur, possibly representing low-grade chondroid lesion such as enchondroma. However, there is suggestion of endosteal thinning which raise the possibility of chondrosarcoma, especially if there is history of associated pain in this location. Please correlate clinically. Thickening and intrasubstance signal changes involving the anterior cruciate ligament suggesting chronic partial rupture, versus mucoid degeneration. Medial meniscal tear involving the body and posterior horn with partial extrusion. Mild joint degeneration [id number]-fr-[id number] joint effusion Patellar tendinopathy and adjacent fluid/edema. Dictated by: Saleem Laguerre M.D. on 10/26/2020 at 16:40 Approved by: Saleem Laguerre M.D. on 10/26/2020 at 17:19
== END ==
PROVIDERS: Family Provider Family Medicine; PCP Nurse Practitioner Family; Referring Provider Orthopaedic Surgery; Visit Provider Orthopaedic Surgery
DX: M25.561 Pain in right knee (principal); S83.241A Other tear of medial meniscus, current injury, right knee, initial encounter; M89.9 Disorder of bone, unspecified; M17.11 Unilateral primary osteoarthritis, right knee; M25.461 Effusion, right knee
CPT/HCPCS: 73723; A9579

== ENCOUNTER → 2021-07-03 12:18 | Outpatient (CLI) | payer OTHER, SELFPAY ==
[2019-10-12 13:28] VITALS: BMI 27.4
--- NOTE | 2021-07-03 12:19 | DI.US.S_ITS ---
PROCEDURE: US PELVIC COMPLETE INDICATIONS: Sharp Pelvic/Abd pain since start of menses TECHNIQUE: Real-time scanning was performed of the pelvic organs, with image documentation. Additional endovaginal scanning was necessary due to incomplete visualization of the adnexal and endometrial structures by transabdominal scanning. COMPARISON: [facility], US, US PELVIC COMPLETE, 10/08/2019, 10:53. FINDINGS: Uterus: Uterus is retroverted and normal in size at 8.1 x 5.2 x 5.3 cm. The myometrium is heterogeneous. The endometrium measures 5.4 mm combined thickness. Hypoechoic lesion in the cervix, compatible with a nabothian cyst. Ovaries: The right ovary measures 2.2 x 0.9 x 1.4 cm. The left ovary measures 1.6 x 1.5 x 1.3 cm. Hypoechoic lesion in the left ovary with some internal echoes measuring up to 1.6 cm, most consistent with a hemorrhagic cyst. Other: No pathologic free abdominal or pelvic fluid. IMPRESSION: 1. Hypoechoic lesion in the left ovary, which may reflect a hemorrhagic cyst. We strive to produce accurate, complete, and clear reports of imaging services. To assist us in improving patient care, this report was composed using standard report templates and voice recognition software. Therefore, it may contain abnormal punctuation, insertions and/or omissions. Occasional wrong-word or sound-alike substitutions may occur. Though we review the report and make efforts to correct it, we do recommend that the report be read carefully in proper context to recognize any text inaccuracies. Dictated by: Jama Buck M.D. on 07/03/2021 at 13:44 Approved by: Jama Buck M.D. on 07/03/2021 at 13:47
== END ==
PROVIDERS: Family Provider Family Medicine; PCP Nurse Practitioner Family; Referring Provider Specialist; Visit Provider Obstetrics & Gynecology
DX: R10.2 Pelvic and perineal pain (principal); N83.9 Noninflammatory disorder of ovary, fallopian tube and broad ligament, unspecified; Z87.42 Personal history of other diseases of the female genital tract
CPT/HCPCS: 76830; 76856

== ENCOUNTER → 2021-10-19 12:45 | Outpatient (CLI) | payer OTHER, SELFPAY ==
[2019-10-12 13:28] VITALS: BMI 27.4
--- NOTE | 2021-10-19 | DI.MRI.S_ITS ---
PROCEDURE: MR KNEE RT WO CON INDICATIONS: Sprain of anterior cruciate ligament of right knee TECHNIQUE: Noncontrast sagittal PD fast spin echo and T2 fast spin echo with fat saturation, sagittal 3-D FLASH with fat saturation; coronal T1 spin echo and PD fast spin echo with fat saturation, and axial PD fast spin echo with fat saturation through the knee. COMPARISON: [facility], MR, MR KNEE RT WO/W CON, 10/26/2020, 14:46. [facility], CR, XR KNEE 4+ VIEWS RIGHT, 09/21/2021, 9:54. FINDINGS: Image quality: Excellent. Anterior Cruciate Ligament: At least high-grade partial and likely complete tearing of the proximal anterior cruciate ligament near its femoral attachment. Some of the torn ligament fibers are displaced inferiorly. Posterior Cruciate Ligament: Intact. Medial Collateral Ligament: Intact. Lateral Collateral Ligament: Intact. Medial Meniscus: Horizontal oblique tearing of the posterior horn and body of the medial meniscus extending to the inner third of the tibial articular surface. There appears to be inferior displacement of some meniscal tissue into the tibial gutter. Findings appear similar when compared to the prior MRI from 10/26/2020. Lateral Meniscus: Radial tearing is seen at the posterior root attachment of the lateral meniscus, which appears new or worsened when compared to the prior MRI. Suspected additional horizontal oblique tearing of the posterior horn and body of the lateral meniscus extending to the mid to inner third of the tibial articular surface. Medial and Lateral Tendons: The semimembranosus tendon insertions and meniscocapsular junction appear intact. Visualized portions of the pes anserinus tendons appear normal. No abnormal bursal fluid. The long and short heads of the biceps femoris tendon appear intact. The popliteus tendon appears intact. No signs of posterolateral corner injury. Iliotibial band appears normal. Anterior Structures: The quadriceps and patellar tendons appear intact. No patellar subluxation. No femoral trochlear dysplasia or ventral trochlear prominence. No edema in the infrapatellar fat pad. Bones: No acute trabecular bone injury or fracture. Mild anterior translation of the tibial plateau relative to the distal femur. A circumscribed T2-hyperintense lesion with mild chondroid matrix appears unchanged when compared to the MRI from 10/26/2020, most likely a low-grade chondroid lesion such as an enchondroma. Mild chronic cystic changes and edema in the central tibial plateau near the anterior cruciate ligament insertion and anterior root attachment of the lateral meniscus. Medial Femorotibial Cartilage: No focal cartilage defect. Lateral Femorotibial Cartilage: Moderate grade partial-thickness cartilage loss is seen in the posterior weight-bearing portion of the lateral femoral condyle. Patellofemoral Cartilage: Minimal surface irregularity is again seen within the articular cartilages. Soft Tissues: Moderate joint effusion. Small medial popliteal cyst. Mild nonspecific subcutaneous prepatellar edema is seen. The musculature surrounding the knee is normal in bulk. IMPRESSION: 1. At least high-grade partial tearing and likely complete tearing of the anterior cruciate ligament near its femoral attachment. The bulk of the proximal ligament fibers are inferiorly displaced. There is mild anterior translation of the tibia relative to the distal femur. 2. Complex tearing of the lateral meniscus with a radial component at the posterior root attachment and a subtle horizontal oblique component involving the posterior horn and body extending to the tibial articular surface. 3. Horizontal oblique tearing of the body and posterior horn of the medial meniscus with a small amount of inferiorly displaced meniscal tissue in the tibial gutter, not significantly changed when compared to the MRI from 10/26/2020. 4. 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 Grade 2 chondromalacia is again seen in the anterior compartment. 5. Moderate joint effusion. Small medial popliteal cyst. 6. Stable circumscribed osseous lesion in the distal femoral metaphysis, again most likely representing a low-grade chondroid lesion such as an enchondroma. Dictated by: Benjamin Brennan M.D. on 10/19/2021 at 13:23 Approved by: Benjamin Brennan M.D. on 10/19/2021 at 13:41
== END ==
PROVIDERS: Family Provider Family Medicine; PCP Nurse Practitioner Family; Referring Provider Orthopaedic Surgery; Visit Provider Orthopaedic Surgery
DX: S83.511A Sprain of anterior cruciate ligament of right knee, initial encounter (principal); S83.271A Complex tear of lateral meniscus, current injury, right knee, initial encounter; S83.241A Other tear of medial meniscus, current injury, right knee, initial encounter; M94.261 Chondromalacia, right knee; M25.461 Effusion, right knee; M71.21 Synovial cyst of popliteal space [Baker], right knee; M89.9 Disorder of bone, unspecified
CPT/HCPCS: 73721

== ENCOUNTER → 2021-12-01 11:53 | Outpatient (CLI) | payer OTHER, SELFPAY ==
[2019-10-12 13:28] VITALS: BMI 27.4
[2021-12-01 13:01] LABS: Add Manual Diff / Slide Review NO; Basophils Absolute Auto 0 /uL (0-100); Basophils Percent Auto 0.7 % (0-2); Eosinophils Absolute Auto 300 /uL (0-450); Hematocrit 41.3 % (36-46); Hemoglobin 13.9 g/dL (12.0-16.0); Lymphocytes Absolute Auto 1700 /uL (1100-4500); Lymphocytes Percent Auto 30.8 % (25-40); Mean Corpuscular HGB Conc 33.6 % (30-36); Mean Corpuscular Hemoglobin 32.8 PG (26-34); Mean Corpuscular Volume 97.6 fL (80-100); Monocytes Absolute Auto 600 /uL (0-900); Monocytes Percent Auto 11.2 % (3-14); Neutrophils Absolute Auto 2900 /uL (1500-7000); Neutrophils Percent Auto 51.3 % (50-75); Platelet Count 239 X10^3/uL (150-400); Red Blood Cell Count 4.23 X10^6/uL (4.0-5.2); Red Cell Distribution Width 12.7 % (11.6-14.8); White Blood Cell Count 5.6 X10^3/uL (4.5-11.0)
[2021-12-01 13:47] LABS: Alanine Aminotransferase 22 IU/L (<35); Albumin 4.4 g/dL (3.5-5.0); Albumin Globulin Ratio 1.5 (1.0-2.8); Alkaline Phosphatase 87 U/L (38-126); Aspartate Aminotransferase 31 IU/L (14-36); BUN Creatinine Ratio 26.3 (6-22); Bilirubin Total 0.3 mg/dL (0.2-1.3); Blood Urea Nitrogen 20 mg/dL (7-17); Calcium 9.5 mg/dL (8.4-10.2); Carbon Dioxide 29 mmol/L (22-32); Chloride 102 mmol/L (98-107); Cholesterol 260 mg/dL (140-199); Estimated Glomerular Filt Rate > 60 mL/min (>60); Glucose 93 mg/dL (70-100); HDL Cholesterol 88 mg/dL (40-60); HEMOLYSIS < 15 (0-50); LDL Cholesterol Calculated 143 mg/dL (<100); Potassium 4.2 mmol/L (3.4-5.1); Sodium 139 mmol/L (137-145); Total Protein 7.4 g/dL (6.3-8.2); Triglycerides 143 mg/dL (35-150)
[2021-12-01 14:16] LABS: Thyroid Stimulating Hormone 1.11 uIU/mL (0.47-4.68)
== END ==
PROVIDERS: Family Provider Family Medicine; PCP Nurse Practitioner Family; Referring Provider Naturopath; Visit Provider Naturopath
DX: Z00.00 Encounter for general adult medical examination without abnormal findings (principal); R53.83 Other fatigue
CPT/HCPCS: 36415; 80053; 80061; 84443; 85025

== ENCOUNTER 2022-02-01 16:26 | Emergency (ER) | payer OTHER, SELFPAY ==
[2019-10-12 13:28] VITALS: BMI 27.4
[2022-02-01] VITALS (8 sets, daily range): BP systolic 133–172; BP diastolic 72–93; PULSE 56–69; RESP 19; TEMP 37.1; O2SAT 95–99; BMI 27.8
--- NOTE | 2022-02-01 19:00 | DI.US.S_ITS ---
PROCEDURE: US PELVIC COMPLETE INDICATIONS: ? rupturing hemorrhagic cyst R side. (post appy already) TECHNIQUE: Real-time scanning was performed of the pelvic organs, with image documentation. Additional endovaginal scanning was necessary due to incomplete visualization of the adnexal and endometrial structures by transabdominal scanning. COMPARISON: [facility], , US PELVIC COMPLETE, 07/03/2021, 12:36. FINDINGS: Uterus: Uterus is retroverted and measures 8.5 x 6.1 x 4.8 cm. The endometrium measures up to 0.8 cm in thickness. No uterine mass identified. Ovaries: The right ovary measures 3.3 x 2.3 x 2.8 cm. The left ovary measures 2.1 x 1.1 x 2.8 cm. There is patent arterial and venous flow demonstrated within the right ovary. There is a cyst with internal septations and eccentric wall thickening measuring approximately 2.3 x 2.0 x 1.7 cm suggestive of a hemorrhagic cyst. There is also an additional oval anechoic cyst measuring 2.0 x 1.4 x 0.9 cm likely representing a follicular cyst. Other: No pathologic free abdominal or pelvic fluid. IMPRESSION: 1. Complex right ovarian cyst likely representing a hemorrhagic cyst. Given the eccentric wall thickening, a follow-up ultrasound is recommended in 6 weeks to demonstrate resolution. 2. No definite evidence of ovarian torsion. We strive to produce accurate, complete, and clear reports of imaging services. To assist us in improving patient care, this report was composed using standard report templates and voice recognition software. Therefore, it may contain abnormal punctuation, insertions and/or omissions. Occasional wrong-word or sound-alike substitutions may occur. Though we review the report and make efforts to correct it, we do recommend that the report be read carefully in proper context to recognize any text inaccuracies. Dictated by: Arnaud Bundy M.D. on 02/01/2022 at 21:18 Approved by: Arnaud Bundy M.D. on 02/01/2022 at 21:23
[2022-02-01 20:12] LABS: Add Manual Diff / Slide Review NO; Basophils Absolute Auto 0 /uL (0-100); Basophils Percent Auto 0.4 % (0-2); Eosinophils Absolute Auto 400 /uL (0-450); Eosinophils Percent Auto 5.1 % (2-4); Hematocrit 38.9 % (36-46); Lymphocytes Absolute Auto 2000 /uL (1100-4500); Lymphocytes Percent Auto 27.9 % (25-40); Mean Corpuscular HGB Conc 33.6 % (30-36); Mean Corpuscular Hemoglobin 32.2 PG (26-34); Mean Corpuscular Volume 95.9 fL (80-100); Monocytes Absolute Auto 700 /uL (0-900); Monocytes Percent Auto 9.8 % (3-14); Neutrophils Absolute Auto 4100 /uL (1500-7000); Neutrophils Percent Auto 56.8 % (50-75); Platelet Count 332 X10^3/uL (150-400); Red Blood Cell Count 4.05 X10^6/uL (4.0-5.2); Red Cell Distribution Width 12.4 % (11.6-14.8); White Blood Cell Count 7.2 X10^3/uL (4.5-11.0)
--- NOTE | 2022-02-01 20:51 | ED.GENADULT ---
HPI - General Adult General Chief complaint: Abdominal Pain Stated complaint: rt side ovary pain Time Seen by Provider: 02/01/22 18:26 Source: patient Mode of arrival: Family Vehicle History of Present Illness HPI narrative: 46-year-old woman with a known history of right hemorrhagic ovarian cyst being followed by her primary care provider presents with increasing right lower quadrant pain over the last week and at this point is having difficulty standing up straight and walking because of the pain. She describes significant cramping and when she bears down there was a mucousy discharge from her rectum. She describes no fevers but feels warm nauseated decreased appetite. She is not having chest pain, palpitations, dyspnea nor orthopnea. She does not describe significant vaginal discharge. Related Data Home Medications Medication Instructions Recorded Confirmed fluoxetine 20 mg capsule 20 mg PO DAILY 12/25/17 02/01/22 Compounded estrogen/progesterone PO 10/08/19 02/01/20 propranolol 10 mg tablet 10 tab PO PRN PRN Anxiety 02/01/22 02/01/22 Previous Rx's Medication Instructions Recorded norethindrone (contraceptive) 0.35 0.35 mg PO DAILY Suppression 05/23/20 mg tablet ovulation #28 tabs Allergies Allergy/AdvReac Type Severity Reaction Status Date / Time codeine [CODEINE] Allergy Unknown Verified 02/01/22 16:56 chlorpheniramine AdvReac Intermediate INCREASED Verified 02/01/22 16:56 [From Tussionex] COUGHING/JITTERS hydrocodone [From Tussionex] AdvReac Intermediate INCREASED Verified 02/01/22 16:56 COUGHING/JITTERS Review of Systems Review of Systems Narrative: Remainder of complete review of systems is otherwise unremarkable except for that included in the HPI. Patient History Medical History Abnormal Pap smear of cervix Acute appendicitis (~09/2019) Hemorrhage of corpus luteum cyst of left ovary Human papillomavirus PMDD (premenstrual dysphoric disorder) Recurrent cold sores Surgical History History of rectocele Status post loop electrosurgical excision procedure (LEEP) of cervix Social History household members: spouse and children Smoking Status: Never smoker alcohol intake: current Smoking Status: Never smoker alcohol intake frequency: 0-2 drinks per day Substance Use Type: marijuana Exam Initial Vital Signs Initial Vital Signs: Vital Signs Temperature 98.7 F 02/01/22 16:51 Pulse Rate 69 02/01/22 16:51 Respiratory Rate 19 02/01/22 16:51 Blood Pressure 172/93 H 02/01/22 16:51 Pulse Oximetry 99 02/01/22 16:51 Oxygen Delivery Method 02/01/22 16:51 General: Healthy appearing, in no acute distress. Able to give a complete and coherent history. Well-nourished well-developed HEENT: Moist mucous membranes, normal sclera with reactive pupils, Respiratory: Lungs are clear to auscultation, no wheezing no rales no rhonchi. Full and symmetrical air movement Cardiac: Regular rate and rhythm no murmurs no bruits Abdomen: Soft, right lower quadrant tenderness without rebound or guarding. Good bowel tones, no flank pain Skin: Warm and dry, no rashes Neurologic: Grossly neurologically intact with no obvious asymmetries or abnormalities Extremities: No trauma, well perfused Psych: Cooperative, appropriate insight and affect Course Orders Ordered: ED Orders 02/01/22 19:00 US pelvic complete Stat 02/01/22 19:56 Beta HCG, Quant [HCG Quantitative /Beta subunit] Stat CBC Auto Diff [Complete Blood Count AUTO DIFF] Stat CMP [Comprehensive Metabolic Panel] Stat Hydromorphone HCl (Hydromorphone 0.5 Mg Inj) 0.5 mg IV Q15MIN PRN PRN Reason: Pain, Last Admin: 02/01/22 21:08 Dose: 0.5 mg Documented By: NR Discontinued Medications Sodium Chloride (Normal Saline 0.9%) 1,000 mls @ 1,000 mls/hr IV BOLUS ONE Stop: 02/01/22 21:53 Last Infusion: 02/01/22 23:25 Dose: 0 mls/hr Documented By: Admin: 02/01/22 21:09 Dose: 1,000 mls/hr Documented By: NR Ondansetron HCl (Ondansetron 4 Mg/2 Ml Inj) 4 mg IV NOW ONE Stop: 02/01/22 20:55 Last Admin: 02/01/22 21:09 Dose: 4 mg Documented By: NR Vital Signs Vital signs: Vital Signs - 8 hr 02/01/22 16:51 Temperature 98.7 F Pulse Rate 69 Respiratory Rate 19 Blood Pressure 172/93 H Pulse Oximetry 99 Oxygen Delivery Method Room Air Medical Decision Making Lab Data Result diagrams: 02/01/22 19:56 02/01/22 19:56 Labs: Lab Results 02/01/22 02/01/22 Range/Units 19:56 19:56 WBC 7.2 (4.5-11.0) X10^3/uL RBC 4.05 (4.0-5.2) X10^6/uL Hgb 13.0 (12.0-16.0) g/dL Hct 38.9 (36-46) % MCV 95.9 (80-100) fL MCH 32.2 (26-34) PG MCHC 33.6 (30-36) % RDW 12.4 (11.6-14.8) % Plt Count 332 (150-400) X10^3/uL Neut % (Auto) 56.8 (50-75) % Lymph % (Auto) 27.9 (25-40) % [place] % (Auto) 9.8 (3-14) % Eos % (Auto) 5.1 H (2-4) % Baso % (Auto) 0.4 (0-2) % Neut # (Auto) 4100 (7374-7514) /uL Lymph # (Auto) 2000 (8884-8926) /uL [place] # (Auto) 700 (0-900) /uL Eos # (Auto) 400 (0-450) /uL Baso # (Auto) 0 (0-100) /uL Sodium 136 L (137-145) mmol/L Potassium 4.0 (3.4-5.1) mmol/L Chloride 101 (98-107) mmol/L Carbon Dioxide 28 (22-32) mmol/L BUN 12 (7-17) mg/dL Creatinine 0.63 (0.52-1.04) mg/dL Estimated GFR > 60 (>60) mL/min BUN/Creatinine Ratio 19.0 (6-22) Glucose 95 (70-100) mg/dL Calcium 9.2 (8.4-10.2) mg/dL Total Bilirubin 0.4 (0.2-1.3) mg/dL AST 35 (14-36) IU/L ALT 23 (<35) IU/L Alkaline Phosphatase 76 (38-126) U/L Total Protein 7.6 (6.3-8.2) g/dL Albumin 4.1 (3.5-5.0) g/dL Globulin 3.5 (1.7-4.1) g/dL Albumin/Globulin Ratio 1.2 (1.0-2.8) HCG, Quant < 2.4 mIU/mL Point of Care Testing Test Results Negative Urine Dip Bedside Urine Glucose Negative Bedside Urine Bilirubin - Negative Bedside Urine Ketone - Negative Urine Specific [place] 1.010 Bedside Urine Occult Blood - Negative Bedside Urine pH 6.0 Bedside Urine Protein - Negative Bedside Urine Urobilinogen - Negative Bedside Urine Nitrite - Negative Bedside Urine Leukocytes - Negative Esterase Point of care testing: Point of Care Testing Test Results Negative Urine Dip Bedside Urine Glucose Negative Bedside Urine Bilirubin - Negative Bedside Urine Ketone - Negative Urine Specific [place] 1.010 Bedside Urine Occult Blood - Negative Bedside Urine pH 6.0 Bedside Urine Protein - Negative Bedside Urine Urobilinogen - Negative Bedside Urine Nitrite - Negative Bedside Urine Leukocytes - Negative Esterase Imaging Data US - abdomen: Radiologist's Impression: FINDINGS:? ?? Uterus:? Uterus is retroverted and measures 8.5 x 6.1 x 4.8 cm.? The endometrium measures up to 0.8 cm in thickness.? No uterine mass identified. ? Ovaries:? The right ovary measures 3.3 x 2.3 x 2.8 cm. The left ovary measures 2.1 x 1.1 x 2.8 cm.? There is patent arterial and venous flow demonstrated within the right ovary.? There is a cyst with internal septations and eccentric wall thickening measuring approximately 2.3 x 2.0 x 1.7 cm suggestive of a hemorrhagic cyst.? There is also an additional oval anechoic cyst measuring 2.0 x 1.4 x 0.9 cm likely representing a follicular cyst. ? Other:? No pathologic free abdominal or pelvic fluid. ? ? IMPRESSION:? ? 1. Complex right ovarian cyst likely representing a hemorrhagic cyst.? Given the eccentric wall thickening, a follow-up ultrasound is recommended in 6 weeks to demonstrate resolution. ? 2. No definite evidence of ovarian torsion.? ? ? We strive to produce accurate, complete, and clear reports of imaging services. To assist us in improving patient care, this report was composed using standard report templates and voice recognition software. Therefore, it may contain abnormal punctuation, insertions and/or omissions. Occasional wrong-word or sound-alike substitutions may occur. Though we review the report and make efforts to correct it, we do recommend that the report be read carefully in proper context to recognize any text inaccuracies. ? ? Dictated by: Arnaud Bundy M.D. on 02/01/2022 at 21:18 ? ? MDM Narrative Medical decision making narrative: 46-year-old woman complaining of significant left pelvic pain. She notes that she was diagnosed with COVID on January 15 and felt that her symptoms were fairly mild but has been feeling more fatigued recently. Over the last 2-3 days she is having increasing pain and concerned that there is worsening findings. Ultrasound reveals a complex right ovarian cyst presumably of a hemorrhagic cyst of which she was aware. It does not look like it is rupturing she does not have free fluid. There is no ovarian torsion. There is no evidence of other infection or alternate diagnosis at this time. Pain has been controlled with Percocet and she is feeling better after sleeping for a bit. At this point she is safe for home discharge. Will suggest that she use ibuprofen and Tylenol for pain control, Percocet and ibuprofen for severe pain and follow-up with her OBGYN. Reassurance is given questions are answered. Discharge Plan Departure Patient Disposition: Home Clinical Impression: Hemorrhagic cyst of right ovary Instructions: DI for Ovarian Cyst Activity Restrictions/Additional Instructions: Thank you for coming in today and being so patient with your extended stay. Fortunately your ultrasound shows that while you do have a hemorrhagic cyst there does not appear to be any acute bleeding, twisted ovary, abscess is or other conditions that would require additional workup or hospital admission. Cysts do tend to resolved themselves. Typically we give them between 6 weeks and 3 months before we recheck. I would recommend that you follow-up with your primary care doctor regarding this. In the meantime, using 400 mg of ibuprofen (2 [id number] pills) and 1 Tylenol every 6 hours can be very helpful in controlling pain. For severe pain using to ibuprofen and 1 Percocet will be helpful. If you do choose to use Percocet it does have narcotic it and will make you constipated. Please make sure you add a stool softener any day that you take a narcotic. If you find that you are getting worse or develop any new symptoms, please feel free to return to the emergency department for further evaluation. Prescriptions: No Action norethindrone (contraceptive) 0.35 mg tablet 0.35 mg PO DAILY Qty: 28 8RF Compounded estrogen/progesterone constantino PO Rx Instructions: /2 of a 2.5/110 mg constantino fluoxetine 20 mg capsule 20 mg PO DAILY propranolol 10 mg tablet 10 tab PO PRN PRN (Reason: Anxiety) Label Comments: TAKE ONE(1) TABLET BY MOUTH THREE(3) TIMES DAILY NEEDED FOR ANXIETY Referrals: Maame Mcarthur ARNP [Primary Care Provider] -
[2022-02-01 21:00] LABS: Alanine Aminotransferase 23 IU/L (<35); Albumin 4.1 g/dL (3.5-5.0); Albumin Globulin Ratio 1.2 (1.0-2.8); Alkaline Phosphatase 76 U/L (38-126); Aspartate Aminotransferase 35 IU/L (14-36); Bilirubin Total 0.4 mg/dL (0.2-1.3); Blood Urea Nitrogen 12 mg/dL (7-17); Calcium 9.2 mg/dL (8.4-10.2); Carbon Dioxide 28 mmol/L (22-32); Chloride 101 mmol/L (98-107); Estimated Glomerular Filt Rate > 60 mL/min (>60); Globulin 3.5 g/dL (1.7-4.1); Glucose 95 mg/dL (70-100); Sodium 136 mmol/L (137-145); Total Protein 7.6 g/dL (6.3-8.2)
[2022-02-01] MEDS: HYDROMORPHONE 0.5 MG INJ IV (21:08)
[2022-02-01] MEDS: SODIUM CHLORIDE 0.9% 1,000 ML 1000 ML IV (21:09)
[2022-02-01] MEDS: ONDANSETRON 4 MG/2 ML INJ IV (21:09)
[2022-02-01 22:12] LABS: HCG Quantitative /Beta subunit < 2.4 mIU/mL; HEMOLYSIS 34 (0-50)
[2022-02-02] VITALS (8 sets, daily range): BP systolic 140; BP diastolic 84; PULSE 55–72; O2SAT 94–97
[2022-02-02] MEDS: OXYCODONE/APAP 5/325 PREPACK 1 BOTTLE MISC (02:48)
[2022-02-02] MEDS: HYDROMORPHONE 0.5 MG INJ IV (02:48)
[2022-02-02] MEDS: IBUPROFEN 400 MG TABLET PO (02:49)
[2022-02-02] MEDS: OXYCODONE/ACETAMINOPHEN 5/325 TABLET 1 TAB PO (02:49)
== END 2022-02-02 03:08 | disposition home or self-care (01) ==
PROVIDERS: Emergency Provider Emergency Medicine; Family Provider Family Medicine; PCP Nurse Practitioner Family; Referring Provider Obstetrics & Gynecology
DX: N83.201 Unspecified ovarian cyst, right side (principal); Z86.16 Personal history of COVID-19
CPT/HCPCS: 36415; 76830; 76856; 80053; 81003; 81025; 84702; 85025; 96361; 96374; 96375; 96376; 99284; J1170; J2405

== ENCOUNTER → 2022-04-13 08:08 | Outpatient (CLI) | payer OTHER, SELFPAY ==
[2019-10-12 13:28] VITALS: BMI 27.4
--- NOTE | 2022-04-13 08:09 | DI.US.S_ITS ---
PROCEDURE: US PELVIC COMPLETE INDICATIONS: Right ovarian cyst pain TECHNIQUE: Real-time scanning was performed of the pelvic organs, with image documentation. Additional endovaginal scanning was necessary due to incomplete visualization of the adnexal and endometrial structures by transabdominal scanning. COMPARISON: [facility], , PELVIC COMPLETE, 07/03/2021, 12:36. [facility], , PELVIC COMPLETE, 02/01/2022, 20:21. FINDINGS: Uterus: Uterus is or retroverted and normal in size at 6.8 x 4.0 x 4.7 cm. The myometrium is homogeneous. The endometrium measures 0.6 cm combined thickness. Ovaries: The ovaries are not visualized due to overlying bowel gas on transabdominal and transvaginal images. No adnexal mass is seen. Other: No pathologic free abdominal or pelvic fluid. IMPRESSION: Technically limited exam with nonvisualization of the ovaries. Consider repeat follow-up pelvic ultrasound versus clinical follow-up or MRI of the pelvis if indicated clinically. We strive to produce accurate, complete, and clear reports of imaging services. To assist us in improving patient care, this report was composed using standard report templates and voice recognition software. Therefore, it may contain abnormal punctuation, insertions and/or omissions. Occasional wrong-word or sound-alike substitutions may occur. Though we review the report and make efforts to correct it, we do recommend that the report be read carefully in proper context to recognize any text inaccuracies. Dictated by: Benjamin Brennan M.D. on 04/13/2022 at 10:10 Approved by: Benjamin Brennan M.D. on 04/13/2022 at 10:16
== END ==
PROVIDERS: Family Provider Family Medicine; PCP Nurse Practitioner Family; Referring Provider Obstetrics & Gynecology; Visit Provider Obstetrics & Gynecology
DX: N83.201 Unspecified ovarian cyst, right side (principal)
CPT/HCPCS: 76830; 76856

== ENCOUNTER → 2022-11-08 10:36 | Outpatient (CLI) | payer OTHER, SELFPAY ==
[2019-10-12 13:28] VITALS: BMI 27.4
--- NOTE | 2022-11-08 | DI.MRI.S_ITS ---
PROCEDURE: MR HEAD/BRAIN WO CON INDICATIONS: Headache, unspecified TECHNIQUE: Noncontrast axial T1 spin echo, axial T2 fast spin echo, sagittal and axial FLAIR, coronal T2 fast spin echo, axial gradient echo, axial diffusion and ADC through the brain. COMPARISON: [facility], CT, HEAD WITHOUT CONTRAST, 03/28/2016, 13:02. FINDINGS: Image quality: Diagnostic. CSF Spaces: Basal cisterns are patent. No extra-axial fluid collections. Ventricles are normal in size and shape. Brain: No intracranial masses or hemorrhage. Cortez/white matter interface is normal. Brainstem appears normal. Diffusion-weighted images demonstrate no acute ischemic insult. No chronic ischemic insults. Normal intravascular flow voids are present. Note is made of a partially empty sella, with the pituitary tissue flattened along the floor of the sella turcica. Skull and face: Calvarium has normal marrow signal. Orbits appear normal. The posterior discs are not flattened. No abnormal fluid can be seen along the optic nerves. Sinuses: Sinuses and mastoids are clear. IMPRESSION: No imaging explanation is found for this patient's presenting symptoms. Dictated by: Flex Lee M.D. on 11/08/2022 at 10:22 Approved by: Flex Lee M.D. on 11/08/2022 at 10:24
== END ==
PROVIDERS: Family Provider Family Medicine; PCP Family Medicine; Referring Provider Family Medicine; Visit Provider Family Medicine
DX: R51.9 Headache, unspecified (principal); G89.29 Other chronic pain
CPT/HCPCS: 70551

== ENCOUNTER → 2023-11-08 08:31 | Outpatient (CLI) | payer OTHER, SELFPAY ==
[2019-10-12 13:28] VITALS: BMI 27.4
--- NOTE | 2023-11-08 08:33 | DI.MRI.S_ITS ---
PROCEDURE: MR KNEE RT WO CON INDICATIONS: Pain in right knee TECHNIQUE: Noncontrast sagittal PD fast spin echo and T2 fast spin echo with fat saturation, sagittal 3-D FLASH with fat saturation; coronal T1 spin echo and PD fast spin echo with fat saturation, and axial PD fast spin echo with fat saturation through the knee. COMPARISON: [facility], MR, MR KNEE RT WO CON, 10/19/2021, 12:54. FINDINGS: Image quality: Excellent. Menisci: In the medial meniscus, there is horizontal oblique tear of the posterior horn, extending into the meniscus body. There is mild extrusion of the medial meniscus body with a small meniscal flap extending into the inferior gutter, grossly unchanged from prior exam. In the lateral meniscus, there is full-thickness tear of the posterior root with progressed extrusion of the meniscus body and progressed near maceration of the meniscus body. There is a small meniscus flap extending to the lateral superior gutter. Cruciate ligaments: Full-thickness tear of the ACL in the proximal fiber, unchanged from prior exam. The PCL is intact. Medial structures: The MCL is intact. Lateral structures: The biceps femoris tendon is unremarkable. Prior sprain of the proximal fibular collateral ligament. The popliteal tendon and muscle are unremarkable. Anterior structures: The quadriceps and the patellar tendon harm are couple. Subcutaneous edema superficial to the patella tendon. Hoffa's fat pad edema. The patellofemoral ligament are intact. Bones and cartilage: The cartilage of the patella is unremarkable. Cartilage of the trochlea is grossly unremarkable as well. The cartilage in the medial compartment is well maintained. In the lateral compartment, there is full-thickness chondral denudation in the weight-bearing portion of the femoral condyle, extending to the anterior common nonweightbearing portion of the femoral condyle. There is full-thickness chondral denudation in the lateral tibial plateau. Marked subchondral marrow edema in the weight-bearing portion of the lateral femoral condyle and the tibial plateau, new from prior exam. Again seen is a 2.4 cm T2 hyperintense lesion in the distal femur, unchanged from prior exam, which may represent a low-grade chondral lesion. No acute fracture. Joint space: Large knee effusion with synovitis. 1.1 cm T2 hyperintense lesion posterior to the proximal tibial fibular articulation, likely representing an intra-articular body, new from prior exam as well. No popliteal cyst. IMPRESSION: 1. Tear of the medial meniscus, unchanged from prior exam. 2. Full-thickness tear of the posterior root of the lateral meniscus with progressed near maceration of the meniscus body. 3. Full-thickness ACL tear, unchanged 4. 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 5. Large knee effusion. 1.1 cm intra-articular body posterior to the proximal tibiofibular articulation, new from prior exam. 6. 2.4 cm T2 hyperintense lesion in the distal femur, likely representing a low grade chondroid lesion, unchanged from prior exam. Dictated by: Cami Limon M.D. on 11/08/2023 at 18:47 Approved by: Cami Limon M.D. on 11/08/2023 at 19:01
== END ==
LOC: MRI 08:31
PROVIDERS: Family Provider Family Medicine; PCP Family Medicine; Referring Provider Orthopaedic Surgery; Visit Provider Orthopaedic Surgery
DX: S83.241A Other tear of medial meniscus, current injury, right knee, initial encounter (principal); S83.281A Other tear of lateral meniscus, current injury, right knee, initial encounter; S83.511A Sprain of anterior cruciate ligament of right knee, initial encounter; M94.261 Chondromalacia, right knee; M25.461 Effusion, right knee; M25.561 Pain in right knee; M89.9 Disorder of bone, unspecified
CPT/HCPCS: 73721

== ENCOUNTER → 2023-12-02 08:46 | Outpatient (CLI) | payer OTHER, SELFPAY ==
[2019-10-12 13:28] VITALS: BMI 27.4
[2023-12-02 10:48] LABS: Add Manual Diff / Slide Review NO; Basophils Absolute Auto 0 /uL (0-100); Basophils Percent Auto 0.4 % (0-2); Eosinophils Absolute Auto 300 /uL (0-450); Eosinophils Percent Auto 3.9 % (2-4); Hematocrit 42.4 % (36-46); Hemoglobin 14.6 g/dL (12.0-16.0); Lymphocytes Absolute Auto 1800 /uL (1100-4500); Lymphocytes Percent Auto 22.8 % (25-40); Mean Corpuscular HGB Conc 34.4 % (30-36); Monocytes Absolute Auto 700 /uL (0-900); Monocytes Percent Auto 9.3 % (3-14); Neutrophils Absolute Auto 5000 /uL (1500-7000); Neutrophils Percent Auto 63.6 % (50-75); Platelet Count 253 X10^3/uL (150-400); Red Blood Cell Count 4.41 X10^6/uL (4.0-5.2); Red Cell Distribution Width 12.8 % (11.6-14.8); White Blood Cell Count 7.9 X10^3/uL (4.5-11.0)
[2023-12-02 10:53] LABS: Hemoglobin A1C% w Est Avg Glu 5.5 % (4.0-6.0)
[2023-12-02 11:20] LABS: BUN Creatinine Ratio 11.9 (6-22); Blood Urea Nitrogen 8 mg/dL (7-17); Calcium 10.1 mg/dL (8.4-10.2); Carbon Dioxide 31 mmol/L (22-32); Chloride 103 mmol/L (98-107); Estimated Glomerular Filt Rate > 60 mL/min (>60); Glucose 93 mg/dL (70-100); HEMOLYSIS < 15 (0-50); Potassium 4.6 mmol/L (3.4-5.1); Sodium 137 mmol/L (137-145)
[2023-12-02 13:05] LABS: Appearance Urine UA CLEAR; Bilirubin Urine UA NEGATIVE (NEGATIVE); Color Urine UA YELLOW; Glucose Urine UA NEGATIVE (Negative); Ketones Urine UA NEGATIVE (NEGATIVE); Leukocyte Esterase Urine UA 1+ (NEGATIVE); Nitrite Urine UA NEGATIVE (Negative); Occult Blood Urine UA 2+ (Negative); Protein Urine UA NEGATIVE (Negative); Specific Gravity Urine UA <=1.005 (1.000-1.035); Urobilinogen Urine UA 0.2 E.U./dL (0.2)
[2023-12-02 13:11] LABS: Bacteria Urine None Seen; Culture Indicated Urine Specimen Cultured; RBC Urine 1-5/HPF (0-5/HPF); Squamous Epithelial Cell Urine 1-5 /HPF (0-5/HPF); Urine Volume 10mL (spun); WBC Urine 1-5/HPF (0-5/HPF)
== END ==
LOC: LAB 08:46
PROVIDERS: Family Provider Family Medicine; PCP Family Medicine; Referring Provider Orthopaedic Surgery; Visit Provider Orthopaedic Surgery
DX: Z01.812 Encounter for preprocedural laboratory examination (principal); Z01.818 Encounter for other preprocedural examination; R73.9 Hyperglycemia, unspecified; N39.0 Urinary tract infection, site not specified
CPT/HCPCS: 36415; 80048; 81001; 83036; 85025; 87086; 93005

== ENCOUNTER → 2024-04-16 09:15 | Outpatient (CLI) | payer OTHER, SELFPAY ==
[2024-04-15 14:02] VITALS: BMI 27.4
[2024-04-16 11:46] LABS: Cancer Antigen 125 < 5.5 U/mL (0-35)
== END ==
PROVIDERS: Family Provider Family Medicine; PCP Family Medicine; Referring Provider Obstetrics & Gynecology; Visit Provider Obstetrics & Gynecology
DX: R14.0 Abdominal distension (gaseous) (principal)
CPT/HCPCS: 36415; 86304

== ENCOUNTER → 2024-04-16 10:00 | Outpatient (CLI) | payer BC, SELFPAY ==
[2024-04-15 14:02] VITALS: BMI 27.4
--- NOTE | 2024-04-16 10:00 | DI.CT.S_ITS ---
PROCEDURE: CT ABDOMEN PELVIS W CON INDICATIONS: suspicion of diverticulitis TECHNIQUE: After the administration of intravenous contrast, axial sections acquired from the lung bases to the pubic symphysis. Coronal and sagittal reformats were performed. For radiation dose reduction, the following was used: automated exposure control, adjustment of mA and/or kV according to patient size. COMPARISON: [facility], CT, CT ABDOMEN PELVIS W CON, 10/12/2019, 10:40. FINDINGS: Image quality: Diagnostic. Lower Chest: No significant findings. ABDOMEN: Liver: No solid mass. Gallbladder: No radiopaque gallstones or wall thickening. Biliary ducts: No biliary dilation. Pancreas: No ductal dilation. Spleen: Size is within normal limits. Adrenal Glands: No adrenal nodules. Kidneys and Ureters: No hydronephrosis. No solid mass. No complex renal cystic lesion which requires follow up. Stomach and Bowel: Severe diffuse thickening of the sigmoid and rectum. There are a number of diverticuli present. However, the length of the involved segment suggests that this is likely segmental colitis unrelated to diverticulitis. There is marked wall thickening and edematous change. Peritoneum: No abnormal intraperitoneal fluid. No free air. Inflammatory change in the fat subjacent to the sigmoid and rectum. Ventral Wall: No significant ventral hernia. Abdominal Nodes: No retroperitoneal or mesenteric adenopathy by size criteria. Vessels: Aorta and inferior vena cava are normal in size. PELVIS: Pelvic Organs: Unremarkable. Bladder: No bladder wall thickening, accounting for underdistention. Pelvic Nodes: No enlarged lymph nodes. Miscellaneous: No inguinal hernias are seen. Bones: No aggressive osseous abnormality. Bilateral L5 pars defects, anterolisthesis of L5 on S1, severe bilateral foraminal narrowing at L5-S1. IMPRESSION: Severe segmental distal colitis involving the sigmoid and rectum. This is on likely diverticulitis. Consider infectious versus inflammatory etiologies. Bilateral L5 pars defects with anterolisthesis and bilateral foraminal L5 nerve root impingement. Dictated by: Declan Garcia M.D. on 04/16/2024 at 12:27 Approved by: Declan Garcia M.D. on 04/16/2024 at 12:35
--- NOTE | 2024-04-16 10:01 | DI.US.S_ITS ---
PROCEDURE: US PELVIC COMPLETE INDICATIONS: Ovarian cyst TECHNIQUE: Real-time scanning was performed of the pelvic organs, with image documentation. Additional endovaginal scanning was necessary due to incomplete visualization of the adnexal and endometrial structures by transabdominal scanning. COMPARISON: [facility], US, US PELVIC COMPLETE, 04/13/2022, 8:20. [facility], US, US PELVIC COMPLETE, 04/16/2024, 9:04. FINDINGS: Uterus: Uterus is retroverted and normal in size at 9.3 x 4.9 x 4.8 cm. The myometrium is homogeneous. The endometrium measures 3 mm combined thickness. No fibroids seen. Ovaries: Right ovary is not seen. Left ovary measures 1.7 x 1.8 x 0.8 cm, estimated volume of 1 cc. Blood flow is seen in the left ovary. No significant ovarian cyst is demonstrated. Less than 12 ovarian follicles are seen. Other: Pelvic fluid is within physiologic limits. Prominent loop of bowel in the right lower quadrant. IMPRESSION: 1. No significant ovarian cyst is demonstrated. 2. Right ovary is not seen. 3. Endometrium measures 3 mm. We strive to produce accurate, complete, and clear reports of imaging services. To assist us in improving patient care, this report was composed using standard report templates and voice recognition software. Therefore, it may contain abnormal punctuation, insertions and/or omissions. Occasional wrong-word or sound-alike substitutions may occur. Though we review the report and make efforts to correct it, we do recommend that the report be read carefully in proper context to recognize any text inaccuracies. Dictated by: Eusebio Montelongo M.D. on 04/16/2024 at 10:58 Approved by: Eusebio Montelongo M.D. on 04/16/2024 at 11:02
== END ==
PROVIDERS: Family Provider Family Medicine; PCP Family Medicine; Referring Provider Obstetrics & Gynecology; Visit Provider Obstetrics & Gynecology
DX: N83.209 Unspecified ovarian cyst, unspecified side (principal); K57.92 Diverticulitis of intestine, part unspecified, without perforation or abscess without bleeding; R14.0 Abdominal distension (gaseous); K52.9 Noninfective gastroenteritis and colitis, unspecified; M43.17 Spondylolisthesis, lumbosacral region; M48.07 Spinal stenosis, lumbosacral region
CPT/HCPCS: 36415; 74177; 76856; 86304; Q9967